=== PATIENT | male | born 1955 | race Caucasian/White ===

== ENCOUNTER 2020-11-02 08:38 | Day surgery (SDC) | payer MEDICARE, BC ==
[2020-10-26 12:05] LABS: BASOPHILS % (AUTO) 0.4 % (0-1); EOSINOPHILS % (AUTO) 0.8 % (0-6); LYMPHOCYTES # (AUTO) 1.6 X10'3 (1.1-4.8); MEAN CORPUSCULAR HEMOGLOBIN 32.6 PG (27.0-31.0); MONOCYTES # (AUTO) 0.6 X10'3 (0-0.9); NEUTROPHILS # (AUTO) 3.4 X10'3 (1.8-7.7)
[2020-10-26 12:07] LABS: LYMPHOCYTES % (AUTO) 27.8 % (21-51); MEAN CORPUSCULAR VOLUME 93.2 FL (78-98); MEAN PLATELET VOLUME 8.4 FL (7.4-10.4); MONOCYTES % (AUTO) 11.1 % (2-12); NEUTROPHILS % (AUTO) 59.9 % (42-75); PRE OP HEMOGLOBIN 15.4 g/dL (14.0-17.9); PRE OP PLATELET COUNT 145 X10'3 (140-440); RED BLOOD COUNT 4.71 X10'6 (4.70-6.10); RED CELL DISTRIBUTION WIDTH 14.5 % (11.5-14.5)
[2020-10-26 12:20] LABS: ALBUMIN 4.3 G/DL (3.4-5.0); ALBUMIN/GLOBULIN RATIO 1.6 (1.1-1.5); ALKALINE PHOSPHATASE 65 IU/L (46-116); BLOOD UREA NITROGEN 14 MG/DL (7-18); BUN/CREATININE RATIO 16.5 (5.4-32.0); CALCIUM 8.9 MG/DL (8.5-10.1); CHLORIDE 107 MMOL/L (99-107); CREATININE 0.85 MG/DL (0.60-1.10); PRE OP ALT 49 U/L (30-65); PRE OP ANION GAP 4 (8-16); PRE OP AST 31 U/L (10-37); PRE OP BILIRUB, TOTAL 0.9 MG/DL (0.0-1.0); PRE OP GLUCOSE 99 MG/DL (70-104); PRE OP SODIUM 143 MMOL/L (135-145); TOTAL CARBON DIOXIDE 32.5 MMOL/L (24-32); eGFR 90 ML/MIN
[2020-10-26 12:22] LABS: PRE OP POTASSIUM 4.5 MMOL/L (3.4-5.1)
[2020-11-02] VITALS (10 sets, daily range): BP systolic 91–130; BP diastolic 54–80
[~2020-11-02] VITALS: Ht 182.9 cm; Wt 107.0 kg
[~2020-11-02 08:38] MED LIST: AMLO-381 PO; FLO0.4C PO; METH2.5T PO; cefazolin/dext.iso 2gm/100ml IV ONE; famotidine 20mg tablet PO ONE; ringers solution, lacted 1,000 ML IV SCH
[2020-11-02 10:36] LABS: CLARITY,URINE SLIGHTLY CLOUDY (Clear); COLOR,URINE YELLOW (Yellow); GLUCOSE, URINE NEGATIVE (Neg); KETONES,URINE NEGATIVE (Neg); LEUKOCYTE ESTERASE ,URINE NEGATIVE (Neg); NITRITES, URINE NEGATIVE (Neg); OCCULT BLOOD,URINE NEGATIVE (Neg); PROTEIN,URINE TRACE mg/dl (Neg); UA COLLECTION TYPE NON-SPECIFIED; UROBILINOGEN,URINE 0.2 E.U/dL (0.2-1.0)
[2020-11-02] MEDS ORDERED: proCHLORperazine 10 MG/2 ml inj IV PRN (10:40)
[2020-11-02] MEDS ORDERED: ondansetron/PF 4mg/2ml inj IV PRN ×2 (10:40→14:15)
[2020-11-02] MEDS ORDERED: ringers solution, lacted 1,000 ML IV SCH ×2 (10:40→14:15)
[2020-11-02] MEDS ORDERED: morphine 2 MG/ML inj. syringe IV PRN ×2 (10:40→14:15)
[2020-11-02] MEDS ORDERED: morphine 4 MG/ML inj SYRINge IV PRN ×2 (10:40→14:15)
[2020-11-02] MEDS ORDERED: meperidine/PF 25mg/ml syringe IV PRN ×3 (10:40)
[2020-11-02 10:44] LABS: SQUAMOUS EPITHELIAL CELL,UR MANY /LPF (FEW)
[2020-11-02 10:45] LABS: BACTERIA,URINE FEW /HPF (Neg); RBC,URINE 0-2 /HPF (0-2); WBC,URINE 0-4 /HPF (0-4)
[2020-11-02 10:46] LABS: MUCUS STRANDS MODERATE /LPF (Neg)
[2020-11-02] MEDS ORDERED: ondansetron/PF 4mg/2ml inj ONE (13:18)
[2020-11-02] MEDS ORDERED: rocuronium 10mg/ml inj IV ONE (13:18)
[2020-11-02] MEDS ORDERED: sevoflurane 250ml liquid IH ONE (13:18)
[2020-11-02] MEDS ORDERED: BUPIVAcaine/PF 2.5 mg/ml (0.25%) 30ml vial ONE (13:23)
[2020-11-02] MEDS ORDERED: bacitracin 15gm ointment TP ONE (13:23)
[2020-11-02] MEDS ORDERED: ROPIVAcaine 0.5% (5mg/ml) 30ml vial ONE ×2 (13:54)
[2020-11-02] MEDS ORDERED: dexamethasone sod phosphate 4mg/ml inj. ONE (13:55)
[2020-11-02] MEDS ORDERED: LIDOcaine 2% (20mg/ml) 5ml vial ONE (13:55)
[2020-11-02] MEDS ORDERED: propofol inj 20 ML IV ONE (13:55)
[2020-11-02] MEDS ORDERED: midazolam 1 mg/ML 2ml injection ONE (14:06)
[2020-11-02] MEDS ORDERED: fentaNYL/PF 50MCG/1 ML 2ML syringe ONE (14:06)
[2020-11-02] MEDS ORDERED: hydrALAZINE 20mg/ml inj. IV PRN (14:15)
[2020-11-02] MEDS ORDERED: fentaNYL/PF 50MCG/1 ML 2ML syringe IV PRN ×2 (14:15)
[2020-11-02] MEDS ORDERED: enalaprilat dihydrate 2.5mg/2ml vial IV PRN (14:15)
--- NOTE | 2020-11-02 15:28 | NUR ---
Received from OR via [facility] , accompanied by Anesthesiologist ANDRÉS and report given by Anesthesiolgist. PATIENT WITH 20G PIV IN LEFT UE RUNNING LR AT 100. RIGHT SPLINT IS ON AND CDI. 10L MASK ON WITH 100% SATURATIONS. VSS Addendum: 11/02/20 at 1536 by Vinny Simons RN, RN Amended: Links added.
--- NOTE | 2020-11-02 16:48 | NUR ---
ALL DISCHARGE CRITERIA HAS BEEN MET. VSS, PAIN AT A TOLERABLE LEVEL, VOIDING AND ABLE TO SAFELY AMBULATE AND TRANSFER SELF. IV TAKEN OUT WITHOUT ANY COMPLICATIONS. ALL DISCHARGE INSTRUCTIONS COVERED WITH PATIENT AND ALL QUESTIONS ANSWERED. PATIENT TAKEN OUT VIA WHEELCHAIR TO PERSONAL VEHICLE WHERE FAMILY/FRIEND DROVE PATIENT HOME. PICKED UP PATIENT AND PATIENT PIVOTED TO VEHICLE MAINTAINING HIS NWB STATUS. DID NOT DESIRE CRUTCHES- STATES THAT HE HAS THEM AT HOME Addendum: 11/02/20 at 1707 by Vinny Reid - SUSHIL LING Amended: Links added.
== END 2020-11-02 16:48 | disposition home or self-care (01) ==
LOC: PAS 08:38
PROVIDERS: ATTEND Podiatrist Foot & Ankle Surgery
DX: M89.8X7 Other specified disorders of bone, ankle and foot (principal); M21.6X1 Other acquired deformities of right foot; I10 Essential (primary) hypertension; G47.30 Sleep apnea, unspecified; N40.0 Benign prostatic hyperplasia without lower urinary tract symptoms; M06.9 Rheumatoid arthritis, unspecified; E66.8 Other obesity; Z68.32 Body mass index [BMI] 32.0-32.9, adult; M51.36 Other intervertebral disc degeneration, lumbar region; G89.18 Other acute postprocedural pain; Z98.890 Other specified postprocedural states; Z87.891 Personal history of nicotine dependence; Z79.899 Other long term (current) drug therapy; Z79.82 Long term (current) use of aspirin; Z72.89 Other problems related to lifestyle
CPT/HCPCS: 28118; 28200; 64445; 64447; 73620; 76000; 76942; 80053; 81001; 82948; 85025; 93005; A6222; C1713; J1100; J2001; J2250; J2405; J2704; J3010; J3490; A4215; A4618; A6253; A6449; A7000; J2795; J7120